=== PATIENT | male | born 1990 | race Caucasian/White ===

== ENCOUNTER 2022-01-16 20:26 | Emergency (ER) | payer BC ==
--- OUTSIDE RECORDS SUMMARY | 2022-01-16 20:30 | XMS REPORT | Continuity of Care Document ---
:1990 Author Organization [facility] t Address [address] [place] [address] Care Team Providers Name Role Phone Lora Attending Clinician Unavailable Problems This patient has no known problems. Allergies, Adverse Reactions, Alerts This patient has no known allergies or adverse reactions. Medications This patient has no known medications. Procedures This patient has no known procedures. Encounters Start End Encounter Admission Attending Care Care Encounter Source Date/Time Date/Time Type Type Clinicians Facility Department ID 2021-11-[address] [facility] [id number] [facility] 12:20:11 Mag [id number] [facility] 2021-11-[address] [facility] [id number] [facility] 12:00:34 Mag [id number] [facility] 2021-11-[address] [facility] [id number] [facility] 11:50:37 Mag [id number] [facility] 2021-07-10 2021-07-10 Outpatient [facility] [id number] [facility] 2021-01-09 2021-01-09 Outpatient [facility] [id number] [facility] 2020-10-24 2020-10-24 Outpatient [facility] [id number] [facility] 2020-08-30 2020-08-30 Outpatient [facility] [id number] [facility] 2020-08-08 2020-08-08 Out[facility] [id number] [facility] 2020-07-29 2020-07-29 Outpatient [facility] [id number] [facility] 2020-07-24 2020-07-24 Outpatient [facility] [id number] [facility] 2020-07-10 2020-07-10 Outpatient [facility] [id number] [facility] Results This patient has no known results.
[2022-01-16 21:05] LABS: Absolute Lymphocytes (CBC) 1.9 K/uL (0.7-4.9); Hematocrit 47.6 % (39.6-49.0); MPV 8.1 fL (7.6-11.3); RBC Red Blood Cell Count 5.16 M/uL (4.33-5.43)
--- NOTE | 2022-01-16 21:13 | RAD REPORT ---
EXAM DESCRIPTION: CT - Head Brain Wo Cont - 01/16/2022 9:00 pm CLINICAL HISTORY: SYNCOPE COMPARISON: <Comparisons> TECHNIQUE: Axial 5 mm thick images of the head were obtained without IV contrast. All CT scans are performed using dose optimization technique as appropriate and may include automated exposure control or mA/KV adjustment according to patient size. FINDINGS: No intracranial hemorrhage, mass, edema or shift of mid-line structures. No acute infarcti on changes seen. No abnormal extra-axial fluid collections. Ventricles are normal. Mastoid air cells and visualized portions of the paranasal sinuses are clear. No acute bony findings. IMPRESSION: Negative non-contrast CT head examination.
[2022-01-16 21:44] LABS: BUN Blood Urea Nitrogen 8 mg/dL (7-18); Bicarbonate 27 mmol/L (21-32); Glucose Level 123 mg/dL (74-106); Potassium 3.6 mmol/L (3.5-5.1); Sodium Level 140 mmol/L (136-145)
[2022-01-16 22:04] LABS: Troponin High Sensitivity 3.7 pg/mL (<58.9)
--- NOTE | 2022-01-16 22:06 | RAD REPORT ---
EXAM DESCRIPTION: RAD - Chest Single View - 01/16/2022 9:30 pm CLINICAL HISTORY: syncope COMPARISON: None available TECHNIQUE: AP portable chest image was obtained 01/16/2022 9:30 pm . FINDINGS: Lungs are clear. Heart and vasculature are normal. No measurable pleural effusion and no p neumothorax. No acute bony abnormality seen. No acute aortic findings suspected. IMPRESSION: No acute cardiopulmonary process.
--- NOTE | 2022-01-16 22:25 | EDPHYS ---
Physician Documentation [facility] Name: Miguel Angel Ellington Jr Age: 31 yrs Sex: Male : 1990 Arrival Date: 01/16/2022 Time: 20:28 Bed 4 Private MD: ED Physician Mariano Joe HPI: 01/16 21:11 This 31 yrs old Male presents to ER via Wheelchair with complaints of Syncope. ms3 21:12 The patient has experienced syncope, lost consciousness. Onset: The symptoms/episode ms3 began/occurred acutely, just prior to arrival. Duration: This was a single episode, that lasted 1 minute(s). Context: the episode(s) was witnessed, by a significant other. Associated injury: The patient did not suffer any apparent associated injury. Associated signs and symptoms: The patient has no apparent associated signs or symptoms. 31-year-old male with past medical history of hypertension and GERD presents for syncope that occurred just prior to arrival lasting 1 minute. She denies pain at this time. Patient denies alleviating or inciting factors. Patient denies preceding symptoms prior to syncope.. Historical: - Allergies: 20:41 No Known Allergies; ab2 - PMHx: 20:41 Hypertensive disorder; GERD; ab2 - PSHx: 20:41 None; ab2 - Immunization history:: Adult Immunizations up to date. - Social history:: Smoking status: Patient denies any tobacco usage or history of. ROS: 21:12 Constitutional: Negative for fever, and chills. Eyes: Negative for injury, pain, ms3 redness, and discharge, Neck: Negative for injury, pain, and swelling, Cardiovascular: Negative for chest pain, and palpitations. Respiratory: Negative for shortness of breath, cough, wheezing, and pleuritic chest pain, Abdomen/GI: Negative for abdominal pain, nausea, vomiting, diarrhea, and constipation, MS/Extremity: Negative for injury and deformity, Skin: Negative for injury, rash, and discoloration. 21:12 Neuro: Positive for headache, syncope. 21:12 All other systems are negative. Exam: 20:40 ECG was reviewed by the Attending Physician. ms3 21:12 Constitutional: This is a well developed, well nourished patient who is awake, alert, ms3 and in no acute distress. Head/Face: Normocephalic, atraumatic. Neck: Trachea midline, no cervical lymphadenopathy. Supple, full range of motion without nuchal rigidity, or vertebral point tenderness. No Meningismus. Chest/axilla: Normal chest wall appearance and motion. Nontender with no deformity. Cardiovascular: Regular rate and rhythm with a normal S1 and S2. No gallops, murmurs, or rubs. Normal PMI, no JVD. No pulse deficits. Respiratory: Lungs have equal breath sounds bilaterally, clear to auscultation and percussion. No rales, rhonchi or wheezes noted. No increased work of breathing, no retractions or nasal flaring. Abdomen/GI: Soft, non-tender, with normal bowel sounds. No distension or tympany. No guarding or rebound. No evidence of tenderness throughout. Skin: Warm, dry with normal turgor. Normal color with no rashes, no lesions, and no evidence of cellulitis. MS/ Extremity: Pulses equal, no cyanosis. Neurovascular intact. Full, normal range of motion. Neuro: Awake and alert, GCS 15, oriented to person, place, time, and situation. Cranial nerves II-XII grossly intact. Motor strength 5/5 in all extremities. Sensory grossly intact. Cerebellar exam normal. Normal gait. Psych: Awake, alert, with orientation to person, place and time. Behavior, mood, and affect are within normal limits. Vital Signs: 20:39 BP 142 / 85; Pulse 98; Resp 17; Temp 98.1; Pulse Ox 99% on R/A; Weight 92.99 kg; Height ab2 5 ft. 11 in. (180.34 cm); Pain 6/10; 21:27 BP 138 / 72; Pulse 89; Resp 13 S; Pulse Ox 99% on R/A; as6 22:33 BP 117 / 61; Pulse 97; Resp 15 S; Pulse Ox 98% on R/A; as6 20:39 Body Mass Index 28.59 (92.99 kg, 180.34 cm) ab2 MDM: 20:44 Patient medically screened. ms3 21:12 Differential Diagnosis: cardiac arrhythmia, vasovagal episode, Dehydration vs Alcohol ms3 intoxication. 22:26 Data reviewed: vital signs, nurses notes, lab test result(s), EKG, radiologic studies, ms3 CT scan, plain films. Data interpreted: retreader: rate is 91 beats/min, rhythm is normal sinus rhythm, with no ectopy, Interpretation: normal rate, normal rhythm. Counseling: I had a detailed discussion with the patient and/or guardian regarding: the historical points, exam findings, and any diagnostic results supporting the discharge/admit diagnosis, lab results, radiology results, the need for outpatient follow up, to return to the emergency department if symptoms worsen or persist or if there are any questions or concerns that arise at home. Refusal of service: The patient/guardian displays adequate decision making capability and despite a detailed discussion of alternatives, benefits, risks, and consequences refuses: Admission to the hospital for further work-up and treatment. ED course: Discussed labs, EKG, chest x-ray, CT head with patient. Observation recommended and patient declines. Discussed benefit of observation and risks of discharge with patient. Patient follow-up with his primary care physician in 1 to 2 days. Patient understands agrees with plan. All questions were answered. Return precautions discussed include worsening symptoms, or any other concerns. On reevaluation patient is alert and oriented x4, no apparent distress, nontoxic appearing. Patient discharged to the care of his significant other.. 01/16 20:44 Order name: Basic Metabolic Panel; Complete Time: 22:05 ms3 01/16 20:44 Order name: CBC with Diff ms3 01/16 20:44 Order name: Troponin HS; Complete Time: 22:05 ms3 01/16 20:44 Order name: XRAY Chest (1 view); Complete Time: 22:19 ms3 01/16 20:44 Order name: CT Head Brain wo Cont; Complete Time: 21:56 ms3 01/16 21:14 Order name: ETOH Level; Complete Time: 21:56 ms3 01/16 20:44 Order name: EKG; Complete Time: 20:45 ms3 01/16 20:44 Order name: Cardiac monitoring; Complete Time: 20:45 ms3 01/16 20:44 Order name: EKG - Nurse/Tech; Complete Time: 20:45 ms3 01/16 20:44 Order name: IV Saline Lock; Complete Time: 20:55 ms3 01/16 20:44 Order name: Labs collected and sent; Complete Time: 20:55 ms3 01/16 20:44 Order name: O2 Per Protocol; Complete Time: 20:45 ms3 01/16 20:44 Order name: O2 Sat Monitoring; Complete Time: 20:45 ms3 EC:40 Rate is 83 beats/min. Rhythm is regular. QRS [place] is Normal. Clinical impression: NSR ms3 w/ Non-specific ST/T Changes. Interpreted by me. Reviewed by me. Administered Medications: No medications were administered Disposition Summary: 01/16/22 22:24 Discharge Ordered Location: Home ms3 Condition: Stable ms3 Diagnosis - syncope ms3 - Alcohol use, unspecified with intoxication ms3 Followup: ms3 - With: Jurgen Downs MD - When: 2 - 3 days - Reason: Re-evaluation by your physician Discharge Instructions: - Discharge Summary Sheet ms3 - Alcohol Intoxication ms3 - Syncope ms3 Forms: - Medication Reconciliation Form ms3 - Thank You Letter ms3 - Antibiotic Education ms3 - Prescription Opioid Use ms3 Signatures: Dispatcher [employer] EDMS Mariano Joe DO DO ms3 Wilber Mccormick ab2 Angélica Estes PA PA sb3
--- NOTE | 2022-01-16 22:25 | ER ---
Nurse's Notes [facility] Name: Miguel Angel Ellington Jr Age: 31 yrs Sex: Male : 1990 Arrival Date: 01/16/2022 Time: 20:28 Bed 4 Private MD: Diagnosis: syncope;Alcohol use, unspecified with intoxication Presentation: 01/16 20:39 Chief complaint: Spouse and/or significant other states: "He has had about 8 beers and ab2 we were in the kitchen he said he was SOB and having some chest pain and then he passed out. He was really red and breathing weird. When he came to he started crying which is not like him. His left pupil got really dilated and his left eye is drooping.". Coronavirus screen: Vaccine status: Patient reports being unvaccinated. Client denies travel out of the [place] in the last 14 days. At this time, the client does not indicate any symptoms associated with coronavirus-19. Ebola Screen: Patient negative for fever greater than or equal to 101.5 degrees Fahrenheit, and additional compatible Ebola Virus Disease symptoms Patient denies exposure to infectious person. Patient denies travel to an Ebola-affected area in the 21 days before illness onset. No symptoms or risks identified at this time. Initial Sepsis Screen: Does the patient meet any 2 criteria? No. Patient's initial sepsis screen is negative. Does the patient have a suspected source of infection? No. Patient's initial sepsis screen is negative. Risk Assessment: Do you want to hurt yourself or someone else? Patient reports no desire to harm self or others. Onset of symptoms is unknown. 20:39 Method Of Arrival: Wheelchair ab2 20:39 Acuity: CIERRA 3 ab2 Triage Assessment: 20:42 General: Appears in no apparent distress. uncomfortable, Behavior is cooperative, ab2 inappropriate for age. Pain: Complains of pain in chest. Neuro: Level of Consciousness is awake, alert, obeys commands, Oriented to person, place, time, Moves all extremities. Gait is steady. Cardiovascular: Reports chest pain, shortness of breath, Patient's skin is warm and dry. Respiratory: Airway is patent Respiratory effort is even, unlabored, Respiratory pattern is regular, symmetrical. GI: No deficits noted. No signs and/or symptoms were reported involving the gastrointestinal system. : No deficits noted. No signs and/or symptoms were reported regarding the genitourinary system. Derm: Skin is intact, Skin is pink, warm \\T\\ dry. Historical: - Allergies: 20:41 No Known Allergies; ab2 - PMHx: 20:41 Hypertensive disorder; GERD; ab2 - PSHx: 20:41 None; ab2 - Immunization history:: Adult Immunizations up to date. - Social history:: Smoking status: Patient denies any tobacco usage or history of. Screenin:58 Abuse screen: Denies threats or abuse. Denies injuries from another. Nutritional as6 screening: No deficits noted. Tuberculosis screening: No symptoms or risk factors identified. Fall Risk None identified. Assessment: 20:55 General: Appears in no apparent distress. comfortable, Behavior is calm, cooperative. as6 General: Smells of alcohol. Pain: Complains of pain in chest Pain does not radiate. Pain began gradually. Neuro: Level of Consciousness is awake, alert, obeys commands, Oriented to person, place, time, situation, slight intermittent left eye droop . Cardiovascular: Reports chest pain, shortness of breath, Rhythm is sinus rhythm. Respiratory: Reports shortness of breath Airway is patent Trachea midline Respiratory effort is even, unlabored, Respiratory pattern is regular, symmetrical, Breath sounds are clear bilaterally. Vital Signs: 20:39 BP 142 / 85; Pulse 98; Resp 17; Temp 98.1; Pulse Ox 99% on R/A; Weight 92.99 kg; Height ab2 5 ft. 11 in. (180.34 cm); Pain 6/10; 21:27 BP 138 / 72; Pulse 89; Resp 13 S; Pulse Ox 99% on R/A; as6 22:33 BP 117 / 61; Pulse 97; Resp 15 S; Pulse Ox 98% on R/A; as6 20:39 Body Mass Index 28.59 (92.99 kg, 180.34 cm) ab2 ED Course: 20:28 Patient arrived in ED. mr 20:29 Mariano Joe DO is Attending Physician. ms3 20:31 Forest Zhang, LAURO is Primary Nurse. as6 20:41 Triage completed. ab2 20:43 Arm band placed on right wrist. ab2 20:50 Inserted saline lock: 20 gauge in right antecubital area, using aseptic technique. as6 Blood collected. 20:50 Patient maintains SpO2 saturation greater than 95% on room air. as6 20:55 Basic Metabolic Panel Sent. as6 20:55 CBC with Diff Sent. as6 20:55 Troponin HS Sent. as6 20:58 Placed in gown. Bed in low position. Call light in reach. Side rails up X2. Adult w/ as6 patient. monitoring manager on. Pulse ox on. NIBP on. Warm blanket given. 21:08 CT Head Brain wo Cont In Process Unspecified. EDMS 21:32 XRAY Chest (1 view) In Process Unspecified. EDMS 22:22 Jurgen Downs MD is Referral Physician. ms3 22:34 No provider procedures requiring assistance completed. IV discontinued, intact, as6 bleeding controlled, No redness/swelling at site. Pressure dressing applied. Administered Medications: No medications were administered Outcome: 22:24 Discharge ordered by . ms3 22:34 Discharged to home ambulatory, with significant other. as6 22:34 Condition: stable 22:34 Discharge instructions given to patient, significant other, Instructed on discharge instructions, follow up and referral plans. Demonstrated understanding of instructions, follow-up care. 22:34 Patient left the ED. as6 Signatures: Dispatcher [employer] EDMaureen Martínez Marcus, DO ms3 Forest Zhang, LAURO RN as6 Wilber Mccormick
[2022-01-17 05:34] VITALS: TEMP 98.1
[2022-01-17 05:37] VITALS: BP 117/61; O2SAT 98
--- NOTE | 2022-01-19 09:43 | EKG ---
Test Date: 2022-01-16 Test Time: 20:40:00 Trim Mounter: JANAK MEASUREMENT RESULTS: Intervals: Rate: 83 NE: 150 QRSD: 94 QT: 330 QTc: 387 [place]: P: 65 NE: 150 QRS: 74 T: 20 INTERPRETIVE STATEMENTS: Normal sinus rhythm Nonspecific T wave abnormality Abnormal ECG No previous ECG available for comparison Electronically Signed On 01-19-22 09:36:14 CDT by Remigio Sepulveda
== END 2022-01-16 22:34 | disposition home or self-care (01) ==
LOC: ER 20:26
DX: R55 Syncope and collapse (principal); F10.929 Alcohol use, unspecified with intoxication, unspecified; R51.9 Headache, unspecified; I10 Essential (primary) hypertension
CPT/HCPCS: 36415; 70450; 71045; 80048; 80320; 84484; 85025; 93005; 99285